=== PATIENT | male | born 1945 | race Caucasian/White ===

== ENCOUNTER 2019-04-22 09:16 | Observation (INO) | payer OTHER ==
[2019-04-22] MEDS ORDERED: Sodium Chloride 0.9% 10 ML Syringe FLUSH PRN (09:18)
[2019-04-22] MEDS ORDERED: Sodium Chloride 0.9% 2.5 ML Syringe FLUSH PRN (09:18)
[2019-04-22] MEDS ORDERED: Albuterol/Ipratropium 3.0-0.5 MG/3 ML Neb Soln NEB ONE (09:29)
[2019-04-22] MEDS ORDERED: methylPREDNISolone Sodium Succinate 125 MG/2 ML SDV IVPUSH ONE (09:29)
--- NOTE | 2019-04-22 09:30 | EDM.PDOC ---
ED HPI GENERAL MEDICAL PROBLEM - General Chief Complaint: Respiratory Problem Stated Complaint: SHORTNESS OF BREATH Time Seen by Provider: 04/22/19 09:29 Source of Information: Reports: Patient, Family History Limitations: Reports: No Limitations - History of Present Illness INITIAL COMMENTS - FREE TEXT/NARRATIVE: HISTORY AND PHYSICAL: History of present illness: Patient is a 73-year-old male presents to the ED with complaint of fever and SOB. He states he had shaking chills this morning and a fever of 101F. He has history of COPD on 2L of O2 with activity. Reports having increased shortness of breath yesterday and worse this morning. Denies chest pain, worsening cough, abdominal pain, nausea, vomiting. He states he takes diltiazem for tachycardia but otherwise denies atrial fibrillation or other cardiac history. He states he has a history of a "spot" in his right upper lobe that comes and goes that he has monitored in [place]. Review of systems: As per history of present illness and below otherwise all systems reviewed and negative. Past medical history: As per history of present illness and as reviewed below otherwise noncontributory. Surgical history: As per history of present illness and as reviewed below otherwise noncontributory. Social history: No reported history of drug or alcohol abuse. Family history: As per history of present illness and as reviewed below otherwise noncontributory. Physical exam: General: Patient sitting comfortably in no acute distress and nontoxic appearing HEENT: Atraumatic, normocephalic, pupils reactive, negative for conjunctival pallor or scleral icterus, mucous membranes moist, throat clear, neck supple, nontender, trachea midline. No meningeal signs. Lungs: Breath sounds diminished throughout all lung mercedes, chest nontender. Heart: S1S2, regular, negative for clicks, rubs, or overt murmur. Abdomen: Soft, nondistended, nontender. Negative for masses or hepatosplenomegaly. Negative for costovertebral tenderness. No rigidity, rebound , guarding. Pelvis: Stable nontender. Genitourinary: Deferred. Rectal: Deferred. Extremities: Atraumatic, negative for cords or calf pain. Neurovascular unremarkable. Neuro: Awake, alert, oriented. Cranial nerves II through XII unremarkable. Cerebellum unremarkable. Motor and sensory unremarkable throughout. Exam nonfocal. Notes: Diagnostics: CBC, CMP, troponin, PT/INR, blood culture x 2, lactate, CXR, EKG Therapeutics: DuoNeb Solumedrol 125mg IM Levaquin 750mg IV Prescriptions: Impression: Dyspnea, fever, COPD exacerbation, pneumonia Plan: Discussed with Dr. Roach, patient admitted to observation. Definitive disposition and diagnosis as appropriate pending reevaluation and review of above. - Related Data Allergies Allergy/AdvReac Type Severity Reaction Status Date / Time No Known Allergies Allergy Verified 04/22/19 09:19 Home Meds: Home Meds Aspirin 81 mg PO DAILY 04/22/19 [History] Bisacodyl [Laxative] 7 tab PO DAILY 04/22/19 [History] Budesonide/Formoterol [Symbicort 160-4.5 MCG] 1 puff INH BID 04/22/19 [History] Diltiazem HCl [Cardizem] 60 mg PO DAILY 04/22/19 [History] Fish Oil/[place]-3 Fatty Acids [Fish Oil] 1 tab PO DAILY 04/22/19 [History] Levalbuterol HCl [Levalbuterol Concentrate] 1 dose INH Q8HR 04/22/19 [History] Magnesium 30 mg PO DAILY 04/22/19 [History] Magnesium Citrate [Citrate of Magnesia] 1 dose PO ASDIRECTED PRN 04/22/19 [ History] Multivitamin [Multivitamins] 1 tab PO DAILY 04/22/19 [History] Potassium Chloride 40 meq PO DAILY 04/22/19 [History] Pravastatin [Pravachol] 40 mg PO BEDTIME 04/22/19 [History] Tiotropium [Spiriva HandiHaler] 2 puff INH DAILY 04/22/19 [History] buPROPion [Wellbutrin SR] 150 mg PO DAILY 04/22/19 [History] busPIRone [Buspar] 10 mg PO TID 04/22/19 [History] lamoTRIgine [Lamictal (Green)] 1 tab PO DAILY 04/22/19 [History] Past Medical History HEENT History: Reports: Cataract Cardiovascular History: Reports: None Respiratory History: Reports: Intubation, Previous, Other (See Below) Other Respiratory History: emphysema. "spot on Right upper lobe" Gastrointestinal History: Reports: None Genitourinary History: Reports: None Musculoskeletal History: Reports: Other (See Below) Neurological History: Reports: None Psychiatric History: Reports: None Endocrine/Metabolic History: Reports: Obesity/BMI 30+ Hematologic History: Reports: None Immunologic History: Reports: None Oncologic (Cancer) History: Reports: Colon Dermatologic History: Reports: None - Past Surgical History Head Surgeries/Procedures: Reports: None HEENT Surgical History: Reports: Cataract Surgery, Tonsillectomy, Other (See Below) Other HEENT Surgeries/Procedures: Procedure on throat Cardiovascular Surgical History: Reports: None Respiratory Surgical History: Reports: None GI Surgical History: Reports: Colon, Colonoscopy, Hernia, Inguinal Male Surgical History: Reports: None Endocrine Surgical History: Reports: Thyroid Biopsy Neurological Surgical History: Reports: None Musculoskeletal Surgical History: Reports: None Oncologic Surgical History: Reports: None Dermatological Surgical History: Reports: None Social & Family History - Family History Family Medical History: Noncontributory ED ROS GENERAL - Review of Systems Review Of Systems: ROS reveals no pertinent complaints other than HPI. ED EXAM, GENERAL - Physical Exam Exam: See Below (see dictation) Course - Vital Signs Last Recorded V/S: Last Vital Signs Temp 100.8 F H 04/22/19 09:19 Pulse 108 H 04/22/19 12:00 Resp 18 04/22/19 12:00 BP 130/77 04/22/19 12:00 Pulse Ox 95 04/22/19 12:00 - Orders/Labs/Meds Orders: Active Orders 24 hr Category Date Time Status Cardiac Monitoring [RC] . DIRECTED Care 04/22/19 09:18 Active EKG Documentation Completion [RC] STAT Care 04/22/19 09:18 Active RT Aerosol Therapy [RC] ASDIRECTED Care 04/22/19 09:29 Active CULTURE BLOOD [BC] Stat Lab 04/22/19 09:22 Received CULTURE BLOOD [BC] Stat Lab 04/22/19 09:40 Received Levofloxacin/Dextrose 5%-Water [Levaquin in D5W 750 MG/ Med 04/22/19 12:35 Ordered 150 ML] 750 mg Premix Bag 1 bag IV ONETIME Sodium Chloride 0.9% [Saline Flush] Med 04/22/19 09:18 Active 10 ml FLUSH ASDIRECTED PRN Sodium Chloride 0.9% [Saline Flush] Med 04/22/19 09:18 Active 2.5 ml FLUSH ASDIRECTED PRN Blood Culture x2 Reflex Set [OM.PC] Stat Oth 04/22/19 09:19 Ordered Saline Lock Insert [OM.PC] Stat Oth 04/22/19 09:18 Ordered Medication Orders Levofloxacin/Dextrose 750 mg/ (Premix) 150 mls @ 100 mls/hr IV ONETIME ONE Stop: 04/22/19 14:04 Sodium Chloride (Saline Flush) 10 ml FLUSH ASDIRECTED PRN PRN Reason: Keep Vein Open Last Admin: 04/22/19 09:29 Dose: 10 ml Sodium Chloride (Saline Flush) 2.5 ml FLUSH ASDIRECTED PRN PRN Reason: Keep Vein Open Last Admin: 04/22/19 09:29 Dose: 2.5 ml Labs: Laboratory Tests 04/22/19 04/22/19 04/22/19 Range/Units 09:22 09:22 09:22 WBC 12.08 H (4.0-11.0) K/uL RBC 4.32 L (4.50-5.90) M/uL Hgb 13.4 (13.0-17.0) g/dL Hct 41.2 (38.0-50.0) % MCV 95.4 (80.0-98.0) fL MCH 31.0 (27.0-32.0) pg MCHC 32.5 (31.0-37.0) g/dL RDW Std Deviation 46.4 (28.0-62.0) fl RDW Coeff of [place] 13 (11.0-15.0) % Plt Count 284 (150-400) K/uL MPV 9.40 (7.40-12.00) fL Neut % (Auto) 75.0 (48.0-80.0) % Lymph % (Auto) 13.2 L (16.0-40.0) % [place] % (Auto) 10.2 (0.0-15.0) % Eos % (Auto) 1.5 (0.0-7.0) % Baso % (Auto) 0.1 (0.0-1.5) % Neut # (Auto) 9.1 H (1.4-5.7) K/uL Lymph # (Auto) 1.6 (0.6-2.4) K/uL [place] # (Auto) 1.2 H (0.0-0.8) K/uL Eos # (Auto) 0.2 (0.0-0.7) K/uL Baso # (Auto) 0.0 (0.0-0.1) K/uL Nucleated RBC % 0.0 /100WBC Nucleated RBCs # 0 K/uL INR 1.02 D-Dimer, Quantitative (0.0-0.50) mg/L FEU Lactate (0.20-2.00) mmol/L Sodium 138 (136-148) mmol/L Potassium 4.2 (3.5-5.1) mmol/L Chloride 103 (98-107) mmol/L Carbon Dioxide 27.4 (21.0-32.0) mmol/L BUN 19 H (7.0-18.0) mg/dL Creatinine 1.1 (0.8-1.3) mg/dL Est Cr Clr Drug Dosing 62.68 mL/min Estimated GFR (MDRD) > 60.0 ml/min Glucose 102 (74-106) mg/dL Calcium 10.0 (8.5-10.1) mg/dL Total Bilirubin 0.6 (0.2-1.0) mg/dL AST 10 L (15-37) IU/L ALT 18 (14-63) IU/L Alkaline Phosphatase 56 (46-116) U/L Troponin I < 0.050 (0.000-0.056) ng/mL Total Protein 7.6 (6.4-8.2) g/dL Albumin 3.3 L (3.4-5.0) g/dL Globulin 4.3 H (2.6-4.0) g/dL Albumin/Globulin Ratio 0.8 L (0.9-1.6) Urine Color Urine Appearance Urine pH (5.0-8.0) Ur Specific Josephine (1.001-1.035) Urine Protein (NEGATIVE) mg/dL Urine Glucose (UA) (NEGATIVE) mg/dL Urine Ketones (NEGATIVE) mg/dL Urine Occult Blood (NEGATIVE) Urine Nitrite (NEGATIVE) Urine Bilirubin (NEGATIVE) Urine Urobilinogen (<2.0) EU/dL Ur Leukocyte Esterase (NEGATIVE) Urine RBC (0-2/HPF) Urine WBC (0-5/HPF) Ur Epithelial Cells (NONE-FEW) Urine Bacteria (NEGATIVE) 04/22/19 04/22/19 04/22/19 Range/Units 09:22 09:22 10:50 WBC (4.0-11.0) K/uL RBC (4.50-5.90) M/uL Hgb (13.0-17.0) g/dL Hct (38.0-50.0) % MCV (80.0-98.0) fL MCH (27.0-32.0) pg MCHC (31.0-37.0) g/dL RDW Std Deviation (28.0-62.0) fl RDW Coeff of [place] (11.0-15.0) % Plt Count (150-400) K/uL MPV (7.40-12.00) fL Neut % (Auto) (48.0-80.0) % Lymph % (Auto) (16.0-40.0) % [place] % (Auto) (0.0-15.0) % Eos % (Auto) (0.0-7.0) % Baso % (Auto) (0.0-1.5) % Neut # (Auto) (1.4-5.7) K/uL Lymph # (Auto) (0.6-2.4) K/uL [place] # (Auto) (0.0-0.8) K/uL Eos # (Auto) (0.0-0.7) K/uL Baso # (Auto) (0.0-0.1) K/uL Nucleated RBC % /100WBC Nucleated RBCs # K/uL INR D-Dimer, Quantitative 0.59 H (0.0-0.50) mg/L FEU Lactate 1.2 (0.20-2.00) mmol/L Sodium (136-148) mmol/L Potassium (3.5-5.1) mmol/L Chloride (98-107) mmol/L Carbon Dioxide (21.0-32.0) mmol/L BUN (7.0-18.0) mg/dL Creatinine (0.8-1.3) mg/dL Est Cr Clr Drug Dosing mL/min Estimated GFR (MDRD) ml/min Glucose (74-106) mg/dL Calcium (8.5-10.1) mg/dL Total Bilirubin (0.2-1.0) mg/dL AST (15-37) IU/L ALT (14-63) IU/L Alkaline Phosphatase (46-116) U/L Troponin I (0.000-0.056) ng/mL Total Protein (6.4-8.2) g/dL Albumin (3.4-5.0) g/dL Globulin (2.6-4.0) g/dL Albumin/Globulin Ratio (0.9-1.6) Urine Color YELLOW Urine Appearance CLEAR Urine pH 6.5 (5.0-8.0) Ur Specific Josephine 1.020 (1.001-1.035) Urine Protein 30 H (NEGATIVE) mg/dL Urine Glucose (UA) NEGATIVE (NEGATIVE) mg/dL Urine Ketones 15 H (NEGATIVE) mg/dL Urine Occult Blood NEGATIVE (NEGATIVE) Urine Nitrite NEGATIVE (NEGATIVE) Urine Bilirubin NEGATIVE (NEGATIVE) Urine Urobilinogen 0.2 (<2.0) EU/dL Ur Leukocyte Esterase NEGATIVE (NEGATIVE) Urine RBC 0-3 (0-2/HPF) Urine WBC 0-1 (0-5/HPF) Ur Epithelial Cells RARE (NONE-FEW) Urine Bacteria RARE (NEGATIVE) Meds: Medications Generic Name Dose Route Start Last Admin Trade Name Freq PRN Reason Stop Dose Admin Levofloxacin/Dextrose 750 mg/ 150 mls @ 100 mls/hr 04/22/19 12:35 Premix IV 04/22/19 14:04 ONETIME ONE Sodium Chloride 10 ml 04/22/19 09:18 04/22/19 09:29 Saline Flush FLUSH 10 ml ASDIRECTED PRN Administration Keep Vein Open Sodium Chloride 2.5 ml 04/22/19 09:18 04/22/19 09:29 Saline Flush FLUSH 2.5 ml ASDIRECTED PRN Administration Keep Vein Open Discontinued Medications Generic Name Dose Route Start Last Admin Trade Name Freq PRN Reason Stop Dose Admin Albuterol/Ipratropium 3 ml 04/22/19 09:29 04/22/19 09:34 Duoneb 3.0-0.5 Mg/3 Ml NEB 04/22/19 09:30 3 ml ONETIME ONE Administration Iopamidol 80 ml 04/22/19 11:26 04/22/19 11:26 Isovue Multipack-370 (76%) IVPUSH 04/22/19 11:27 80 ml ONETIME ONE Administration Methylprednisolone Sodium Succinate 125 mg 04/22/19 09:29 04/22/19 09:33 Solu-Medrol IVPUSH 04/22/19 09:30 125 mg ONETIME ONE Administration Departure - Departure Time of Disposition: 12:39 Disposition: Refer to Observation Condition: Good Clinical Impression: Dyspnea, Fever, COPD exacerbation - Discharge Information Referrals: PCP,None [Primary Care Provider] - Forms: ED Department Discharge - My Orders Last 24 Hours: My Active Orders 04/22/19 09:18 Cardiac Monitoring [RC] . DIRECTED EKG Documentation Completion [RC] STAT Sodium Chloride 0.9% [Saline Flush] 10 ml FLUSH ASDIRECTED PRN Sodium Chloride 0.9% [Saline Flush] 2.5 ml FLUSH ASDIRECTED PRN Saline Lock Insert [OM.PC] Stat 04/22/19 09:19 Blood Culture x2 Reflex Set [OM.PC] Stat 04/22/19 09:22 CULTURE BLOOD [BC] Stat 04/22/19 09:29 RT Aerosol Therapy [RC] ASDIRECTED 04/22/19 09:40 CULTURE BLOOD [BC] Stat 04/22/19 12:35 Levofloxacin/Dextrose 5%-Water [Levaquin in D5W 750 MG/150 ML] 750 mg Premix Bag 1 bag IV ONETIME - Assessment/Plan Last 24 Hours: My Active Orders 04/22/19 09:18 Cardiac Monitoring [RC] . DIRECTED EKG Documentation Completion [RC] STAT Sodium Chloride 0.9% [Saline Flush] 10 ml FLUSH ASDIRECTED PRN Sodium Chloride 0.9% [Saline Flush] 2.5 ml FLUSH ASDIRECTED PRN Saline Lock Insert [OM.PC] Stat 04/22/19 09:19 Blood Culture x2 Reflex Set [OM.PC] Stat 04/22/19 09:22 CULTURE BLOOD [BC] Stat 04/22/19 09:29 RT Aerosol Therapy [RC] ASDIRECTED 04/22/19 09:40 CULTURE BLOOD [BC] Stat 04/22/19 12:35 Levofloxacin/Dextrose 5%-Water [Levaquin in D5W 750 MG/150 ML] 750 mg Premix Bag 1 bag IV ONETIME
[2019-04-22 10:05] LABS: BLOOD UREA NITROGEN,BUN 19 mg/dL (7.0-18.0); CARBON DIOXIDE,CO2 27.4 mmol/L (21.0-32.0); CHLORIDE,CL 103 mmol/L (98-107); GLUCOSE RANDOM 102 mg/dL (74-106); POTASSIUM,K 4.2 mmol/L (3.5-5.1); SODIUM,NA 138 mmol/L (136-148)
--- NOTE | 2019-04-22 10:29 | CR ---
INDICATION: Shortness of breath COMPARISON: none TECHNIQUE: Portable AP erect chest performed at 9:33 a.m. FINDINGS: There are no suspicious infiltrates or masses. There is no evidence pneumothorax. The heart, mediastinum and pulmonary vessels are of normal size. There is no evidence of pleural fluid. IMPRESSION: No acute cardiopulmonary disease process identified. Dictated by Nathan Pitt MD @ Apr 22 2019 10:26AM Signed by Dr. Nathan Pitt @ Apr 22 2019 10:27AM
[2019-04-22] MEDS ORDERED: Iopamidol 755 MG/ML 500 ML Multipack Bottle IVPUSH ONE (11:26)
--- NOTE | 2019-04-22 12:19 | CT ---
INDICATION: Dyspnea, elevated D-dimer. COMPARISON: Chest radiograph 04/22/2019. TECHNIQUE: CT volumetric acquisition was performed of the thorax during intravenous infusion of 80 cc of Isovue-370 nonionic intravenous contrast. Please note that all CT scans at this facility use dose modulation, iterative reconstruction, and/or weight-based dosing when appropriate to reduce radiation dose to as low as reasonably achievable. FINDINGS: Conventional 3 vessel aortic arch. Normal caliber thoracic aorta and central pulmonary arteries. No acute pulmonary embolism. Coronary artery and aortic calcifications. No pericardial effusion. Small low-attenuation nodule in a left thyroid lobe. Upper lung predominant emphysema. There are multifocal areas of scarring in the right upper lobe. Two of these areas have a somewhat spiculated nodular appearance. For example, there is a 1.9 x 1.2 cm spiculated nodular density in on series 502, image 41, and more superior to this a 2.3 x 1.6 cm spiculated nodular density on image 33. These are indeterminate for pulmonary nodules versus confluent areas of scarring. No pleural effusion or pneumothorax. No thoracic lymphadenopathy. Small esophageal hiatal hernia. Multiple low-attenuation lesions in the liver most likely represent benign cysts or hemangiomas. Splenule. Bilateral renal cysts. Mild degenerative changes of the spine. IMPRESSION: 1. No evidence of pulmonary thromboembolism. 2. Advanced emphysema. 3. Two spiculated nodular densities in the right upper lobe measuring up to 2.3 cm may represent pulmonary nodules versus confluent scarring. Recommend follow-up CT in 3 months or alternatively PET-CT. 4. Multiple low-attenuation lesions in the liver most likely represent benign cysts or hemangiomas. Please note that all CT scans at this facility use dose modulation, iterative reconstruction, and/or weight-based dosing when appropriate to reduce radiation dose to as low as reasonably achievable. Dictated by Yaquelin Galvez MD @ Apr 22 2019 12:00PM Signed by Dr. Yaquelin Galvez @ Apr 22 2019 12:18PM
[2019-04-22] MEDS ORDERED: Levofloxacin/Dextrose 5%-Water 750 MG in Premix Bag 1 BAG IV ONE (12:35)
[2019-04-22] MEDS ORDERED: Sodium Chloride 0.9% 1,000 ML IV ONE (12:37)
[2019-04-22] MEDS ORDERED: Ondansetron 4 MG Tab.DIS PO PRN (13:12)
[2019-04-22] MEDS ORDERED: Ondansetron 4 MG/2 ML SDV IVPUSH PRN (13:12)
[2019-04-22] MEDS ORDERED: Acetaminophen 325 MG Tab PO PRN (13:12)
[2019-04-22] MEDS ORDERED: Enoxaparin 40 MG/0.4 ML Syringe SUBCUT SCH (13:15)
--- NOTE | 2019-04-22 13:58 | PCM.HP ---
H&P History of Present Illness - General Date of Service: 04/22/19 Admit Problem/Dx: Admission Diagnosis/Problem Admission Diagnosis/Problem Dyspnea - History of Present Illness Initial Comments - Free Text/Narative: 73 y/o male with history of COPD who presented to the ER with 2-3 day history of worsening shortness of breath. Has been having productive, yellow, green cough. In addition, has been having fevers. No recent sick contacts. No smoking or alcohol. States he just got here over the weekend from [place], [place]. Here visiting family. States he has been using his inhalers as indicated. Denies chest pain, radiation to neck or arms. No abdominal pain, dysuria, diarrhea, constipation. No blood in stool. Able to ambulate short distances without walker. He uses supplemental O2 at home. Baseline of 2 L /min with activity. In the ER, he was found to have a fever, tachycardic. Chest xray was negative for any consolidations, infiltrates. CT chest was negative for PE. - Related Data Allergies/Adverse Reactions: Allergies Allergy/AdvReac Type Severity Reaction Status Date / Time No Known Allergies Allergy Verified 04/22/19 13:51 Home Medications: Home Meds Aspirin 81 mg PO DAILY 04/22/19 [History] Bisacodyl [Laxative] 7 tab PO DAILY 04/22/19 [History] Budesonide/Formoterol [Symbicort 160-4.5 MCG] 1 puff INH BID 04/22/19 [History] Diltiazem HCl [Cardizem] 60 mg PO DAILY 04/22/19 [History] Fish Oil/[place]-3 Fatty Acids [Fish Oil] 1 tab PO DAILY 04/22/19 [History] Levalbuterol HCl [Levalbuterol Concentrate] 1 dose INH Q8HR 04/22/19 [History] Magnesium 30 mg PO DAILY 04/22/19 [History] Magnesium Citrate [Citrate of Magnesia] 1 dose PO ASDIRECTED PRN 04/22/19 [ History] Multivitamin [Multivitamins] 1 tab PO DAILY 04/22/19 [History] Potassium Chloride 40 meq PO DAILY 04/22/19 [History] Pravastatin [Pravachol] 40 mg PO BEDTIME 04/22/19 [History] Tiotropium [Spiriva HandiHaler] 2 puff INH DAILY 04/22/19 [History] buPROPion [Wellbutrin SR] 150 mg PO DAILY 04/22/19 [History] busPIRone [Buspar] 10 mg PO TID 04/22/19 [History] lamoTRIgine [Lamictal (Green)] 1 tab PO DAILY 04/22/19 [History] Past Medical History HEENT History: Reports: Cataract Cardiovascular History: Reports: None Respiratory History: Reports: Intubation, Previous, Other (See Below) Other Respiratory History: emphysema. "spot on Right upper lobe" Gastrointestinal History: Reports: None Genitourinary History: Reports: None Musculoskeletal History: Reports: Other (See Below) Neurological History: Reports: None Psychiatric History: Reports: None Endocrine/Metabolic History: Reports: Obesity/BMI 30+ Hematologic History: Reports: None Immunologic History: Reports: None Oncologic (Cancer) History: Reports: Colon Dermatologic History: Reports: None - Past Surgical History Head Surgeries/Procedures: Reports: None HEENT Surgical History: Reports: Cataract Surgery, Tonsillectomy, Other (See Below) Other HEENT Surgeries/Procedures: Procedure on throat Cardiovascular Surgical History: Reports: None Respiratory Surgical History: Reports: None GI Surgical History: Reports: Colon, Colonoscopy, Hernia, Inguinal Male Surgical History: Reports: None Endocrine Surgical History: Reports: Thyroid Biopsy Neurological Surgical History: Reports: None Musculoskeletal Surgical History: Reports: None Oncologic Surgical History: Reports: None Dermatological Surgical History: Reports: None Social & Family History - Family History Family Medical History: Noncontributory - Tobacco Use Smoking Status *Q: Former Smoker Used Tobacco, but Quit: Yes Month/Year Tobacco Last Used: 2008 - Caffeine Use Caffeine Use: Reports: None - Recreational Drug Use Recreational Drug Use: No H&P Review of Systems - Review of Systems: Review Of Systems: ROS reveals no pertinent complaints other than HPI. Exam - Exam Exam: See Below - Vital Signs Vital Signs: Last Vital Signs Temp 37.3 C 04/22/19 12:47 Pulse 99 04/22/19 12:47 Resp 17 04/22/19 12:47 BP 127/82 04/22/19 12:47 Pulse Ox 98 04/22/19 12:47 Weight: 107 kg - Exam Quality Assessment: Supplemental Oxygen General: Alert, Oriented, Cooperative HEENT: Conjunctiva Clear, Mucosa Moist & Oak Lungs: Clear to Auscultation, Normal Respiratory Effort. No: Crackles, Wheezing Cardiovascular: Regular Rate, Regular Rhythm GI/Abdominal Exam: Normal Bowel Sounds, Soft, Non-Tender, No Distention Extremities: Normal Inspection, Non-Tender, No Pedal Edema Skin: Warm, Dry - Patient Data Lab Results Last 24 hrs: Laboratory Results - last 24 hr 04/22/19 04/22/19 04/22/19 Range/Units 09:22 09:22 09:22 WBC 12.08 H (4.0-11.0) K/uL RBC 4.32 L (4.50-5.90) M/uL Hgb 13.4 (13.0-17.0) g/dL Hct 41.2 (38.0-50.0) % MCV 95.4 (80.0-98.0) fL MCH 31.0 (27.0-32.0) pg MCHC 32.5 (31.0-37.0) g/dL RDW Std Deviation 46.4 (28.0-62.0) fl RDW Coeff of [place] 13 (11.0-15.0) % Plt Count 284 (150-400) K/uL MPV 9.40 (7.40-12.00) fL Neut % (Auto) 75.0 (48.0-80.0) % Lymph % (Auto) 13.2 L (16.0-40.0) % Taylor % (Auto) 10.2 (0.0-15.0) % Eos % (Auto) 1.5 (0.0-7.0) % Baso % (Auto) 0.1 (0.0-1.5) % Neut # (Auto) 9.1 H (1.4-5.7) K/uL Lymph # (Auto) 1.6 (0.6-2.4) K/uL Taylor # (Auto) 1.2 H (0.0-0.8) K/uL Eos # (Auto) 0.2 (0.0-0.7) K/uL Baso # (Auto) 0.0 (0.0-0.1) K/uL Nucleated RBC % 0.0 /100WBC Nucleated RBCs # 0 K/uL INR 1.02 D-Dimer, Quantitative (0.0-0.50) mg/L FEU Lactate (0.20-2.00) mmol/L Sodium 138 (136-148) mmol/L Potassium 4.2 (3.5-5.1) mmol/L Chloride 103 (98-107) mmol/L Carbon Dioxide 27.4 (21.0-32.0) mmol/L BUN 19 H (7.0-18.0) mg/dL Creatinine 1.1 (0.8-1.3) mg/dL Est Cr Clr Drug Dosing 62.68 mL/min Estimated GFR (MDRD) > 60.0 ml/min Glucose 102 (74-106) mg/dL Calcium 10.0 (8.5-10.1) mg/dL Total Bilirubin 0.6 (0.2-1.0) mg/dL AST 10 L (15-37) IU/L ALT 18 (14-63) IU/L Alkaline Phosphatase 56 (46-116) U/L Troponin I < 0.050 (0.000-0.056) ng/mL Total Protein 7.6 (6.4-8.2) g/dL Albumin 3.3 L (3.4-5.0) g/dL Globulin 4.3 H (2.6-4.0) g/dL Albumin/Globulin Ratio 0.8 L (0.9-1.6) Urine Color Urine Appearance Urine pH (5.0-8.0) Ur Specific [place] (1.001-1.035) Urine Protein (NEGATIVE) mg/dL Urine Glucose (UA) (NEGATIVE) mg/dL Urine Ketones (NEGATIVE) mg/dL Urine Occult Blood (NEGATIVE) Urine Nitrite (NEGATIVE) Urine Bilirubin (NEGATIVE) Urine Urobilinogen (<2.0) EU/dL Ur Leukocyte Esterase (NEGATIVE) Urine RBC (0-2/HPF) Urine WBC (0-5/HPF) Ur Epithelial Cells (NONE-FEW) Urine Bacteria (NEGATIVE) 04/22/19 04/22/19 04/22/19 Range/Units 09:22 09:22 10:50 WBC (4.0-11.0) K/uL RBC (4.50-5.90) M/uL Hgb (13.0-17.0) g/dL Hct (38.0-50.0) % MCV (80.0-98.0) fL MCH (27.0-32.0) pg MCHC (31.0-37.0) g/dL RDW Std Deviation (28.0-62.0) fl RDW Coeff of Saitnder (11.0-15.0) % Plt Count (150-400) K/uL MPV (7.40-12.00) fL Neut % (Auto) (48.0-80.0) % Lymph % (Auto) (16.0-40.0) % Taylor % (Auto) (0.0-15.0) % Eos % (Auto) (0.0-7.0) % Baso % (Auto) (0.0-1.5) % Neut # (Auto) (1.4-5.7) K/uL Lymph # (Auto) (0.6-2.4) K/uL Taylor # (Auto) (0.0-0.8) K/uL Eos # (Auto) (0.0-0.7) K/uL Baso # (Auto) (0.0-0.1) K/uL Nucleated RBC % /100WBC Nucleated RBCs # K/uL INR D-Dimer, Quantitative 0.59 H (0.0-0.50) mg/L FEU Lactate 1.2 (0.20-2.00) mmol/L Sodium (136-148) mmol/L Potassium (3.5-5.1) mmol/L Chloride (98-107) mmol/L Carbon Dioxide (21.0-32.0) mmol/L BUN (7.0-18.0) mg/dL Creatinine (0.8-1.3) mg/dL Est Cr Clr Drug Dosing mL/min Estimated GFR (MDRD) ml/min Glucose (74-106) mg/dL Calcium (8.5-10.1) mg/dL Total Bilirubin (0.2-1.0) mg/dL AST (15-37) IU/L ALT (14-63) IU/L Alkaline Phosphatase (46-116) U/L Troponin I (0.000-0.056) ng/mL Total Protein (6.4-8.2) g/dL Albumin (3.4-5.0) g/dL Globulin (2.6-4.0) g/dL Albumin/Globulin Ratio (0.9-1.6) Urine Color YELLOW Urine Appearance CLEAR Urine pH 6.5 (5.0-8.0) Ur Specific [place] 1.020 (1.001-1.035) Urine Protein 30 H (NEGATIVE) mg/dL Urine Glucose (UA) NEGATIVE (NEGATIVE) mg/dL Urine Ketones 15 H (NEGATIVE) mg/dL Urine Occult Blood NEGATIVE (NEGATIVE) Urine Nitrite NEGATIVE (NEGATIVE) Urine Bilirubin NEGATIVE (NEGATIVE) Urine Urobilinogen 0.2 (<2.0) EU/dL Ur Leukocyte Esterase NEGATIVE (NEGATIVE) Urine RBC 0-3 (0-2/HPF) Urine WBC 0-1 (0-5/HPF) Ur Epithelial Cells RARE (NONE-FEW) Urine Bacteria RARE (NEGATIVE) Result Diagrams: 04/22/19 09:22 04/22/19 09:22 Problem List Initiated/Reviewed/Updated: Yes Orders Last 24hrs: Active Orders 24 hr Category Date Time Status Admission Status [Patient Status] [ADT] Stat ADT 04/22/19 12:40 Active Cardiac Monitoring [RC] . DIRECTED Care 04/22/19 09:18 Active Intake and Output [RC] Q12H Care 04/22/19 13:12 Active Oxygen Therapy [RC] PRN Care 04/22/19 13:12 Active RT Aerosol Therapy [RC] ASDIRECTED Care 04/22/19 09:29 Active RT Aerosol Therapy [RC] ASDIRECTED Care 04/22/19 13:14 Active Up ad María [RC] ASDIRECTED Care 04/22/19 13:12 Active VTE/DVT Education [RC] PER UNIT ROUTINE Care 04/22/19 13:12 Active Vital Signs [RC] Q4H Care 04/22/19 13:12 Active Regular Diet [DIET] Diet 04/22/19 Breakfast Active CULTURE BLOOD [BC] Stat Lab 04/22/19 09:22 Received CULTURE BLOOD [BC] Stat Lab 04/22/19 09:40 Received MAGNESIUM [CHEM] Routine Lab 04/22/19 09:22 Received TSH [CHEM] Routine Lab 04/22/19 09:22 Received Acetaminophen [Tylenol] Med 04/22/19 13:12 Active 650 mg PO Q4H PRN Albuterol/Ipratropium [DuoNeb 3.0-0.5 MG/3 ML] Med 04/22/19 13:12 Active 3 ml NEB Q4HRRT PRN Aspirin Med 04/23/19 09:00 Ordered 81 mg PO DAILY Diltiazem IR [Cardizem] Med 04/23/19 09:00 Ordered 60 mg PO DAILY Enoxaparin [Lovenox] Med 04/22/19 13:15 Active 40 mg SUBCUT Q24H Levofloxacin/Dextrose 5%-Water [Levaquin in D5W 750 MG/ Med 04/22/19 12:35 Active 150 ML] 750 mg Premix Bag 1 bag IV ONETIME Levofloxacin/Dextrose 5%-Water [Levaquin in D5W 750 MG/ Med 04/23/19 09:00 Active 150 ML] 750 mg Premix Bag 1 bag IV Q24H Ondansetron [Zofran ODT] Med 04/22/19 13:12 Active 4 mg PO Q4H PRN Ondansetron [Zofran] Med 04/22/19 13:12 Active 4 mg IVPUSH Q4H PRN Sodium Chloride 0.9% [Normal Saline] 1,000 ml Med 04/22/19 12:37 Active IV STAT Sodium Chloride 0.9% [Saline Flush] Med 04/22/19 09:18 Active 10 ml FLUSH ASDIRECTED PRN Sodium Chloride 0.9% [Saline Flush] Med 04/22/19 09:18 Active 2.5 ml FLUSH ASDIRECTED PRN buPROPion Med 04/23/19 09:00 Ordered 150 mg PO DAILY busPIRone Med 04/22/19 14:00 Ordered 10 mg PO TID predniSONE Med 04/23/19 08:00 Active 40 mg PO WITHBREAKFAST Blood Culture x2 Reflex Set [OM.PC] Stat Oth 04/22/19 09:19 Ordered Saline Lock Insert [OM.PC] Stat Oth 04/22/19 09:18 Ordered Resuscitation Status Routine Resus Stat 04/22/19 13:12 Ordered Medication Orders Acetaminophen (Tylenol) 650 mg PO Q4H PRN PRN Reason: Pain (Mild 1-3)/fever Albuterol/Ipratropium (Duoneb 3.0-0.5 Mg/3 Ml) 3 ml NEB Q4HRRT PRN PRN Reason: Shortness Of Breath/wheezing Aspirin (Aspirin) 81 mg PO DAILY RICHARD Diltiazem HCl (Cardizem) 60 mg PO DAILY [facility] Enoxaparin Sodium (Lovenox) 40 mg SUBCUT Q24H RICHARD Levofloxacin/Dextrose 750 mg/ (Premix) 150 mls @ 100 mls/hr IV ONETIME ONE Stop: 04/22/19 14:04 Last Admin: 04/22/19 12:50 Dose: 100 mls/hr Sodium Chloride (Normal Saline) 1,000 mls @ 125 mls/hr IV STAT ONE Stop: 04/22/19 20:36 Last Admin: 04/22/19 12:50 Dose: 125 mls/hr Levofloxacin/Dextrose 750 mg/ (Premix) 150 mls @ 100 mls/hr IV Q24H RICHARD Non-Formulary Medication (Bupropion) 150 mg PO DAILY [facility] Non-Formulary Medication (Buspirone) 10 mg PO TID RICHARD Ondansetron HCl (Zofran Odt) 4 mg PO Q4H PRN PRN Reason: nausea, able to take PO Ondansetron HCl (Zofran) 4 mg IVPUSH Q4H PRN PRN Reason: Nausea Prednisone (Prednisone) 40 mg PO WITHBREAKFAST [facility] Stop: 04/28/19 08:01 Sodium Chloride (Saline Flush) 10 ml FLUSH ASDIRECTED PRN PRN Reason: Keep Vein Open Last Admin: 04/22/19 09:29 Dose: 10 ml Sodium Chloride (Saline Flush) 2.5 ml FLUSH ASDIRECTED PRN PRN Reason: Keep Vein Open Last Admin: 04/22/19 09:29 Dose: 2.5 ml Assessment/Plan Comment:: A: 1. Acute COPD exacerbation 2. Leukocytosis due to above 3. Fever 4. PMH Hypertension, dyslipidemia and colon cancer s/p colectomy. P: 1. Will treat for acute COPD exacerbation. Continue Levaquin 750 mg IV Q24H. Prednisone 40 mg PO daily. Duonebs PRN. Supplemental O2, titrate as needed. Will continue his home medications. Dispo: 1-2 days.
[2019-04-22] MEDS: busPIRone 5 MG Tab PO SCH ×2 (14:45→21:38)
[2019-04-22] MEDS ORDERED: Pravastatin 40 MG Tab PO SCH (21:00)
[2019-04-22] MEDS ORDERED: Terazosin 5 MG Cap PO SCH (21:00)
[2019-04-22] MEDS: Albuterol/Ipratropium 3.0-0.5 MG/3 ML Neb Soln NEB PRN (21:46)
[2019-04-23] MEDS: busPIRone 5 MG Tab PO SCH (05:35)
[2019-04-23 07:54] LABS: BLOOD UREA NITROGEN,BUN 21 mg/dL (7.0-18.0); CHLORIDE,CL 105 mmol/L (98-107); GLUCOSE RANDOM 120 mg/dL (74-106); SODIUM,NA 139 mmol/L (136-148)
[2019-04-23] MEDS ORDERED: predniSONE 20 MG Tab PO SCH (08:00)
[2019-04-23] MEDS ORDERED: Aspirin 81 MG Tab.Chew PO SCH (09:00)
[2019-04-23] MEDS ORDERED: Diltiazem IR 60 MG Tab PO SCH (09:00)
[2019-04-23] MEDS ORDERED: Levofloxacin/Dextrose 5%-Water 750 MG in Premix Bag 1 BAG IV SCH (09:00)
[2019-04-23] MEDS ORDERED: buPROPion 150 MG Tab.SR PO SCH (09:00)
--- NOTE | 2019-04-23 09:12 | PCM.DCSUM1 ---
<Noe Nicole - Last Filed: 04/23/19 09:13> Discharge Summary - Hospital Course Free Text/Narrative:: 73 y/o male with history of COPD presenting to the ER complaining of worsening shortness of breath. Admitted for acute COPD exacerbation. He did relatively well during the hospitalization. His dyspnea resolved with Duonebs. He was started on prednisone and Levaquin. In addition, CT chest was negative for pulmonary embolism, however, there were 2 spiculated nodules found in right upper lobe which needs follow-up with CT chest in 3 months. He was discharged home on levaquin 750 mg PO daily for 5 days and prednisone 40 mg PO daily for 5 days. Will need repeat CT chest in 3 months for suspected spiculated nodules on right lung. - Discharge Data Discharge Date: 04/23/19 Discharge Disposition: Home, Self-Care 01 Condition: Good - Patient Instructions Diet: Regular Diet as Tolerated Activity: As Tolerated Notify Provider of: Fever, Increased Pain, Swelling and Redness, Nausea and/or Vomiting - Discharge Plan *PRESCRIPTION DRUG MONITORING PROGRAM REVIEWED*: Not Applicable *COPY OF PRESCRIPTION DRUG MONITORING REPORT IN PATIENT FELECIA: Not Applicable Prescriptions/Med Rec: Levofloxacin [Levaquin] 750 mg PO DAILY #5 tablet predniSONE 40 mg PO WITHBREAKFAST 5 Days #10 tablet Home Medications: Home Meds Aspirin 81 mg PO DAILY 04/22/19 [History] Budesonide/Formoterol [Symbicort 160-4.5 MCG] 2 puff INH BID 04/22/19 [History] Diltiazem HCl [Cardizem] 360 mg PO DAILY 04/22/19 [History] Fish Oil/[place]-3 Fatty Acids [Fish Oil] 1 tab PO DAILY 04/22/19 [History] Furosemide [Lasix] 40 mg PO DAILY 04/22/19 [History] Levalbuterol HCl [Levalbuterol Concentrate] 1 dose NEB Q4HWA 04/22/19 [History] Loratadine [Allergy Relief] 10 mg PO DAILY 04/22/19 [History] Magnesium 420 mg PO DAILY 04/22/19 [History] Magnesium Citrate [Citrate of Magnesia] 1 dose PO ASDIRECTED PRN 04/22/19 [ History] Multivitamin [Multivitamins] 1 tab PO DAILY 04/22/19 [History] Potassium Chloride 20 meq PO DAILY 04/22/19 [History] Pravastatin [Pravachol] 40 mg PO BEDTIME 04/22/19 [History] Ranitidine [Zantac] 150 mg PO DAILY 04/22/19 [History] Sennosides [Senna] 8.6 mg PO DAILY 04/22/19 [History] Terazosin HCl [Terazosin] 5 mg PO BEDTIME 04/22/19 [History] Tiotropium [Spiriva HandiHaler] 2 puff INH DAILY 04/22/19 [History] buPROPion [Wellbutrin SR] 300 mg PO DAILY 04/22/19 [History] busPIRone [Buspar] 10 mg PO TID 04/22/19 [History] Levofloxacin [Levaquin] 750 mg PO DAILY #5 tablet 04/23/19 [Rx] predniSONE 40 mg PO WITHBREAKFAST 5 Days #10 tablet 04/23/19 [Rx] Patient Handouts: Chronic Obstructive Pulmonary Disease Exacerbation, Easy-to- Read, Shortness of Breath, Adult, [id number], Levofloxacin tablets, Prednisone tablets, Fever, Adult, [id number] - Discharge Summary/Plan Comment DC Time >30 min.: No - Patient Data Vitals - Most Recent: Last Vital Signs Temp 36.7 C 04/23/19 09:00 Pulse 96 04/23/19 09:00 Resp 15 04/23/19 09:00 BP 134/106 H 04/23/19 09:00 Pulse Ox 93 L 04/23/19 09:00 Weight - Most Recent: 107 kg I&O - Last 24 hours: Intake & Output 04/22/19 04/23/19 04/23/19 22:59 06:59 14:59 Intake Total 1633 450 Output Total 500 550 Balance 1133 -100 Lab Results - Last 24 hrs: Laboratory Results - last 24 hr 04/22/19 04/22/19 04/22/19 Range/Units 09:22 09:22 09:22 WBC 12.08 H (4.0-11.0) K/uL RBC 4.32 L (4.50-5.90) M/uL Hgb 13.4 (13.0-17.0) g/dL Hct 41.2 (38.0-50.0) % MCV 95.4 (80.0-98.0) fL MCH 31.0 (27.0-32.0) pg MCHC 32.5 (31.0-37.0) g/dL RDW Std Deviation 46.4 (28.0-62.0) fl RDW Coeff of [place] 13 (11.0-15.0) % Plt Count 284 (150-400) K/uL MPV 9.40 (7.40-12.00) fL Neut % (Auto) 75.0 (48.0-80.0) % Lymph % (Auto) 13.2 L (16.0-40.0) % [place] % (Auto) 10.2 (0.0-15.0) % Eos % (Auto) 1.5 (0.0-7.0) % Baso % (Auto) 0.1 (0.0-1.5) % Neut # (Auto) 9.1 H (1.4-5.7) K/uL Lymph # (Auto) 1.6 (0.6-2.4) K/uL [place] # (Auto) 1.2 H (0.0-0.8) K/uL Eos # (Auto) 0.2 (0.0-0.7) K/uL Baso # (Auto) 0.0 (0.0-0.1) K/uL Nucleated RBC % 0.0 /100WBC Nucleated RBCs # 0 K/uL INR 1.02 D-Dimer, Quantitative (0.0-0.50) mg/L FEU Lactate (0.20-2.00) mmol/L Sodium 138 (136-148) mmol/L Potassium 4.2 (3.5-5.1) mmol/L Chloride 103 (98-107) mmol/L Carbon Dioxide 27.4 (21.0-32.0) mmol/L BUN 19 H (7.0-18.0) mg/dL Creatinine 1.1 (0.8-1.3) mg/dL Est Cr Clr Drug Dosing 62.68 mL/min Estimated GFR (MDRD) > 60.0 ml/min Glucose 102 (74-106) mg/dL Calcium 10.0 (8.5-10.1) mg/dL Magnesium (1.8-2.4) mg/dL Total Bilirubin 0.6 (0.2-1.0) mg/dL AST 10 L (15-37) IU/L ALT 18 (14-63) IU/L Alkaline Phosphatase 56 (46-116) U/L Troponin I < 0.050 (0.000-0.056) ng/mL Total Protein 7.6 (6.4-8.2) g/dL Albumin 3.3 L (3.4-5.0) g/dL Globulin 4.3 H (2.6-4.0) g/dL Albumin/Globulin Ratio 0.8 L (0.9-1.6) Free T4 (0.76-1.46) ng/dL Free T3 (2.18-3.98) pg/mL TSH 3rd Generation (0.36-3.74) uIU/mL Urine Color Urine Appearance Urine pH (5.0-8.0) Ur Specific [place] (1.001-1.035) Urine Protein (NEGATIVE) mg/dL Urine Glucose (UA) (NEGATIVE) mg/dL Urine Ketones (NEGATIVE) mg/dL Urine Occult Blood (NEGATIVE) Urine Nitrite (NEGATIVE) Urine Bilirubin (NEGATIVE) Urine Urobilinogen (<2.0) EU/dL Ur Leukocyte Esterase (NEGATIVE) Urine RBC (0-2/HPF) Urine WBC (0-5/HPF) Ur Epithelial Cells (NONE-FEW) Urine Bacteria (NEGATIVE) 04/22/19 04/22/19 04/22/19 Range/Units 09:22 09:22 09:22 WBC (4.0-11.0) K/uL RBC (4.50-5.90) M/uL Hgb (13.0-17.0) g/dL Hct (38.0-50.0) % MCV (80.0-98.0) fL MCH (27.0-32.0) pg MCHC (31.0-37.0) g/dL RDW Std Deviation (28.0-62.0) fl RDW Coeff of [place] (11.0-15.0) % Plt Count (150-400) K/uL MPV (7.40-12.00) fL Neut % (Auto) (48.0-80.0) % Lymph % (Auto) (16.0-40.0) % [place] % (Auto) (0.0-15.0) % Eos % (Auto) (0.0-7.0) % Baso % (Auto) (0.0-1.5) % Neut # (Auto) (1.4-5.7) K/uL Lymph # (Auto) (0.6-2.4) K/uL [place] # (Auto) (0.0-0.8) K/uL Eos # (Auto) (0.0-0.7) K/uL Baso # (Auto) (0.0-0.1) K/uL Nucleated RBC % /100WBC Nucleated RBCs # K/uL INR D-Dimer, Quantitative 0.59 H (0.0-0.50) mg/L FEU Lactate 1.2 (0.20-2.00) mmol/L Sodium (136-148) mmol/L Potassium (3.5-5.1) mmol/L Chloride (98-107) mmol/L Carbon Dioxide (21.0-32.0) mmol/L BUN (7.0-18.0) mg/dL Creatinine (0.8-1.3) mg/dL Est Cr Clr Drug Dosing mL/min Estimated GFR (MDRD) ml/min Glucose (74-106) mg/dL Calcium (8.5-10.1) mg/dL Magnesium 2.0 (1.8-2.4) mg/dL Total Bilirubin (0.2-1.0) mg/dL AST (15-37) IU/L ALT (14-63) IU/L Alkaline Phosphatase (46-116) U/L Troponin I (0.000-0.056) ng/mL Total Protein (6.4-8.2) g/dL Albumin (3.4-5.0) g/dL Globulin (2.6-4.0) g/dL Albumin/Globulin Ratio (0.9-1.6) Free T4 (0.76-1.46) ng/dL Free T3 (2.18-3.98) pg/mL TSH 3rd Generation 0.20 L (0.36-3.74) uIU/mL Urine Color Urine Appearance Urine pH (5.0-8.0) Ur Specific [place] (1.001-1.035) Urine Protein (NEGATIVE) mg/dL Urine Glucose (UA) (NEGATIVE) mg/dL Urine Ketones (NEGATIVE) mg/dL Urine Occult Blood (NEGATIVE) Urine Nitrite (NEGATIVE) Urine Bilirubin (NEGATIVE) Urine Urobilinogen (<2.0) EU/dL Ur Leukocyte Esterase (NEGATIVE) Urine RBC (0-2/HPF) Urine WBC (0-5/HPF) Ur Epithelial Cells (NONE-FEW) Urine Bacteria (NEGATIVE) 04/22/19 04/22/19 04/23/19 Range/Units 10:50 17:30 07:25 WBC 11.22 H (4.0-11.0) K/uL RBC 4.09 L (4.50-5.90) M/uL Hgb 12.7 L (13.0-17.0) g/dL Hct 38.7 (38.0-50.0) % MCV 94.6 (80.0-98.0) fL MCH 31.1 (27.0-32.0) pg MCHC 32.8 (31.0-37.0) g/dL RDW Std Deviation 45.5 (28.0-62.0) fl RDW Coeff of [place] 13 (11.0-15.0) % Plt Count 277 (150-400) K/uL MPV 9.30 (7.40-12.00) fL Neut % (Auto) (48.0-80.0) % Lymph % (Auto) (16.0-40.0) % [place] % (Auto) (0.0-15.0) % Eos % (Auto) (0.0-7.0) % Baso % (Auto) (0.0-1.5) % Neut # (Auto) (1.4-5.7) K/uL Lymph # (Auto) (0.6-2.4) K/uL [place] # (Auto) (0.0-0.8) K/uL Eos # (Auto) (0.0-0.7) K/uL Baso # (Auto) (0.0-0.1) K/uL Nucleated RBC % 0.0 /100WBC Nucleated RBCs # 0 K/uL INR D-Dimer, Quantitative (0.0-0.50) mg/L FEU Lactate (0.20-2.00) mmol/L Sodium (136-148) mmol/L Potassium (3.5-5.1) mmol/L Chloride (98-107) mmol/L Carbon Dioxide (21.0-32.0) mmol/L BUN (7.0-18.0) mg/dL Creatinine (0.8-1.3) mg/dL Est Cr Clr Drug Dosing mL/min Estimated GFR (MDRD) ml/min Glucose (74-106) mg/dL Calcium (8.5-10.1) mg/dL Magnesium (1.8-2.4) mg/dL Total Bilirubin (0.2-1.0) mg/dL AST (15-37) IU/L ALT (14-63) IU/L Alkaline Phosphatase (46-116) U/L Troponin I (0.000-0.056) ng/mL Total Protein (6.4-8.2) g/dL Albumin (3.4-5.0) g/dL Globulin (2.6-4.0) g/dL Albumin/Globulin Ratio (0.9-1.6) Free T4 1.31 (0.76-1.46) ng/dL Free T3 2.37 (2.18-3.98) pg/mL TSH 3rd Generation (0.36-3.74) uIU/mL Urine Color YELLOW Urine Appearance CLEAR Urine pH 6.5 (5.0-8.0) Ur Specific [place] 1.020 (1.001-1.035) Urine Protein 30 H (NEGATIVE) mg/dL Urine Glucose (UA) NEGATIVE (NEGATIVE) mg/dL Urine Ketones 15 H (NEGATIVE) mg/dL Urine Occult Blood NEGATIVE (NEGATIVE) Urine Nitrite NEGATIVE (NEGATIVE) Urine Bilirubin NEGATIVE (NEGATIVE) Urine Urobilinogen 0.2 (<2.0) EU/dL Ur Leukocyte Esterase NEGATIVE (NEGATIVE) Urine RBC 0-3 (0-2/HPF) Urine WBC 0-1 (0-5/HPF) Ur Epithelial Cells RARE (NONE-FEW) Urine Bacteria RARE (NEGATIVE) 04/23/19 Range/Units 07:25 WBC (4.0-11.0) K/uL RBC (4.50-5.90) M/uL Hgb (13.0-17.0) g/dL Hct (38.0-50.0) % MCV (80.0-98.0) fL MCH (27.0-32.0) pg MCHC (31.0-37.0) g/dL RDW Std Deviation (28.0-62.0) fl RDW Coeff of [place] (11.0-15.0) % Plt Count (150-400) K/uL MPV (7.40-12.00) fL Neut % (Auto) (48.0-80.0) % Lymph % (Auto) (16.0-40.0) % [place] % (Auto) (0.0-15.0) % Eos % (Auto) (0.0-7.0) % Baso % (Auto) (0.0-1.5) % Neut # (Auto) (1.4-5.7) K/uL Lymph # (Auto) (0.6-2.4) K/uL [place] # (Auto) (0.0-0.8) K/uL Eos # (Auto) (0.0-0.7) K/uL Baso # (Auto) (0.0-0.1) K/uL Nucleated RBC % /100WBC Nucleated RBCs # K/uL INR D-Dimer, Quantitative (0.0-0.50) mg/L FEU Lactate (0.20-2.00) mmol/L Sodium 139 (136-148) mmol/L Potassium 5.0 (3.5-5.1) mmol/L Chloride 105 (98-107) mmol/L Carbon Dioxide 26.0 (21.0-32.0) mmol/L BUN 21 H (7.0-18.0) mg/dL Creatinine 1.1 (0.8-1.3) mg/dL Est Cr Clr Drug Dosing 62.68 mL/min Estimated GFR (MDRD) > 60.0 ml/min Glucose 120 H (74-106) mg/dL Calcium 10.0 (8.5-10.1) mg/dL Magnesium (1.8-2.4) mg/dL Total Bilirubin (0.2-1.0) mg/dL AST (15-37) IU/L ALT (14-63) IU/L Alkaline Phosphatase (46-116) U/L Troponin I (0.000-0.056) ng/mL Total Protein (6.4-8.2) g/dL Albumin (3.4-5.0) g/dL Globulin (2.6-4.0) g/dL Albumin/Globulin Ratio (0.9-1.6) Free T4 (0.76-1.46) ng/dL Free T3 (2.18-3.98) pg/mL TSH 3rd Generation (0.36-3.74) uIU/mL Urine Color Urine Appearance Urine pH (5.0-8.0) Ur Specific [place] (1.001-1.035) Urine Protein (NEGATIVE) mg/dL Urine Glucose (UA) (NEGATIVE) mg/dL Urine Ketones (NEGATIVE) mg/dL Urine Occult Blood (NEGATIVE) Urine Nitrite (NEGATIVE) Urine Bilirubin (NEGATIVE) Urine Urobilinogen (<2.0) EU/dL Ur Leukocyte Esterase (NEGATIVE) Urine RBC (0-2/HPF) Urine WBC (0-5/HPF) Ur Epithelial Cells (NONE-FEW) Urine Bacteria (NEGATIVE) Med Orders - Current: Current Medications Acetaminophen (Tylenol) 650 mg PO Q4H PRN PRN Reason: Pain (Mild 1-3)/fever Albuterol/Ipratropium (Duoneb 3.0-0.5 Mg/3 Ml) 3 ml NEB Q4HRRT PRN PRN Reason: Shortness Of Breath/wheezing Last Admin: 04/22/19 21:46 Dose: 3 ml Aspirin (Aspirin) 81 mg PO DAILY [facility] Last Admin: 04/23/19 09:06 Dose: 81 mg Bupropion HCl (Wellbutrin Sr) 150 mg PO DAILY [facility] Last Admin: 04/23/19 09:09 Dose: 150 mg Buspirone HCl (Buspar) 10 mg PO TID [facility] Last Admin: 04/23/19 05:35 Dose: 10 mg Diltiazem HCl (Cardizem) 60 mg PO DAILY [facility] Last Admin: 04/23/19 09:06 Dose: 60 mg Enoxaparin Sodium (Lovenox) 40 mg SUBCUT Q24H [facility] Last Admin: 04/22/19 14:44 Dose: 40 mg Levofloxacin/Dextrose 750 mg/ (Premix) 150 mls @ 100 mls/hr IV Q24H [facility] Last Admin: 04/23/19 09:06 Dose: 100 mls/hr Ondansetron HCl (Zofran Odt) 4 mg PO Q4H PRN PRN Reason: nausea, able to take PO Ondansetron HCl (Zofran) 4 mg IVPUSH Q4H PRN PRN Reason: Nausea Pravastatin Sodium (Pravachol) 40 mg PO BEDTIME [facility] Last Admin: 04/22/19 21:38 Dose: 40 mg Prednisone (Prednisone) 40 mg PO WITHBREAKFAST [facility] Stop: 04/28/19 08:01 Last Admin: 04/23/19 09:06 Dose: 40 mg Sodium Chloride (Saline Flush) 10 ml FLUSH ASDIRECTED PRN PRN Reason: Keep Vein Open Last Admin: 04/22/19 09:29 Dose: 10 ml Sodium Chloride (Saline Flush) 2.5 ml FLUSH ASDIRECTED PRN PRN Reason: Keep Vein Open Last Admin: 04/22/19 09:29 Dose: 2.5 ml Terazosin HCl (Hytrin) 5 mg PO BEDTIME [facility] Last Admin: 04/22/19 21:39 Dose: Not Given Discontinued Medications Albuterol/Ipratropium (Duoneb 3.0-0.5 Mg/3 Ml) 3 ml NEB ONETIME ONE Stop: 04/22/19 09:30 Last Admin: 04/22/19 09:34 Dose: 3 ml Levofloxacin/Dextrose 750 mg/ (Premix) 150 mls @ 100 mls/hr IV ONETIME ONE Stop: 04/22/19 14:04 Last Admin: 04/22/19 12:50 Dose: 100 mls/hr Sodium Chloride (Normal Saline) 1,000 mls @ 125 mls/hr IV STAT ONE Stop: 04/22/19 20:36 Last Admin: 04/22/19 12:50 Dose: 125 mls/hr Iopamidol (Isovue Multipack-370 (76%)) 80 ml IVPUSH ONETIME ONE Stop: 04/22/19 11:27 Last Admin: 04/22/19 11:26 Dose: 80 ml Methylprednisolone Sodium Succinate (Solu-Medrol) 125 mg IVPUSH ONETIME ONE Stop: 04/22/19 09:30 Last Admin: 04/22/19 09:33 Dose: 125 mg <Victoriano Roach - Last Filed: 04/29/19 19:31> - Patient Data Vitals - Most Recent: Last Vital Signs Temp 36.7 C 04/23/19 09:00 Pulse 96 04/23/19 09:00 Resp 15 04/23/19 09:00 BP 134/106 H 04/23/19 09:00 Pulse Ox 93 L 04/23/19 09:00 Med Orders - Current: Current Medications Discontinued Medications Acetaminophen (Tylenol) 650 mg PO Q4H PRN PRN Reason: Pain (Mild 1-3)/fever Albuterol/Ipratropium (Duoneb 3.0-0.5 Mg/3 Ml) 3 ml NEB ONETIME ONE Stop: 04/22/19 09:30 Last Admin: 04/22/19 09:34 Dose: 3 ml Albuterol/Ipratropium (Duoneb 3.0-0.5 Mg/3 Ml) 3 ml NEB Q4HRRT PRN PRN Reason: Shortness Of Breath/wheezing Last Admin: 04/23/19 09:44 Dose: 3 ml Aspirin (Aspirin) 81 mg PO DAILY [facility] Last Admin: 04/23/19 09:06 Dose: 81 mg Bupropion HCl (Wellbutrin Sr) 150 mg PO DAILY [facility] Last Admin: 04/23/19 09:09 Dose: 150 mg Buspirone HCl (Buspar) 10 mg PO TID [facility] Last Admin: 04/23/19 05:35 Dose: 10 mg Diltiazem HCl (Cardizem) 60 mg PO DAILY [facility] Last Admin: 04/23/19 09:06 Dose: 60 mg Diltiazem HCl (Cardizem Cd) 180 mg PO ONETIME ONE Stop: 04/23/19 09:53 Last Admin: 04/23/19 10:18 Dose: 180 mg Enoxaparin Sodium (Lovenox) 40 mg SUBCUT Q24H [facility] Last Admin: 04/22/19 14:44 Dose: 40 mg Levofloxacin/Dextrose 750 mg/ (Premix) 150 mls @ 100 mls/hr IV ONETIME ONE Stop: 04/22/19 14:04 Last Admin: 04/22/19 12:50 Dose: 100 mls/hr Sodium Chloride (Normal Saline) 1,000 mls @ 125 mls/hr IV STAT ONE Stop: 04/22/19 20:36 Last Admin: 04/22/19 12:50 Dose: 125 mls/hr Levofloxacin/Dextrose 750 mg/ (Premix) 150 mls @ 100 mls/hr IV Q24H [facility] Last Admin: 04/23/19 09:06 Dose: 100 mls/hr Iopamidol (Isovue Multipack-370 (76%)) 80 ml IVPUSH ONETIME ONE Stop: 04/22/19 11:27 Last Admin: 04/22/19 11:26 Dose: 80 ml Methylprednisolone Sodium Succinate (Solu-Medrol) 125 mg IVPUSH ONETIME ONE Stop: 04/22/19 09:30 Last Admin: 04/22/19 09:33 Dose: 125 mg Ondansetron HCl (Zofran Odt) 4 mg PO Q4H PRN PRN Reason: nausea, able to take PO Ondansetron HCl (Zofran) 4 mg IVPUSH Q4H PRN PRN Reason: Nausea Pravastatin Sodium (Pravachol) 40 mg PO BEDTIME [facility] Last Admin: 04/22/19 21:38 Dose: 40 mg Prednisone (Prednisone) 40 mg PO WITHBREAKFAST [facility] Stop: 04/28/19 08:01 Last Admin: 04/23/19 09:06 Dose: 40 mg Sodium Chloride (Saline Flush) 10 ml FLUSH ASDIRECTED PRN PRN Reason: Keep Vein Open Last Admin: 04/22/19 09:29 Dose: 10 ml Sodium Chloride (Saline Flush) 2.5 ml FLUSH ASDIRECTED PRN PRN Reason: Keep Vein Open Last Admin: 04/22/19 09:29 Dose: 2.5 ml Terazosin HCl (Hytrin) 5 mg PO BEDTIME [facility] Last Admin: 04/22/19 21:39 Dose: Not Given - Free Text/Narrative Note: I have evaluated the patient. I have discussed findings and treatment plan with resident. I agree with the assessment and plan outlined in the following note.
[2019-04-23] MEDS: Albuterol/Ipratropium 3.0-0.5 MG/3 ML Neb Soln NEB PRN (09:44)
[2019-04-23] MEDS ORDERED: Diltiazem 180 MG Cap.CD PO ONE (09:52)
== END 2019-04-23 11:30 | disposition home or self-care (01) ==
LOC: MW.ED 09:16 → MW.MS 12:40
PROVIDERS: ADMIT Internal Medicine; ATTEND Internal Medicine
DX: J44.1 Chronic obstructive pulmonary disease with (acute) exacerbation (principal); D72.829 Elevated white blood cell count, unspecified; R50.9 Fever, unspecified; E66.9 Obesity, unspecified; I10 Essential (primary) hypertension; E78.5 Hyperlipidemia, unspecified; Z85.038 Personal history of other malignant neoplasm of large intestine; Z90.49 Acquired absence of other specified parts of digestive tract; Z79.82 Long term (current) use of aspirin; Z79.51 Long term (current) use of inhaled steroids; Z79.899 Other long term (current) drug therapy; Z87.891 Personal history of nicotine dependence; Z68.33 Body mass index [BMI] 33.0-33.9, adult
CPT/HCPCS: 36415; 71045; 71275; 80048; 80053; 81001; 83605; 83735; 84439; 84443; 84445; 84481; 84484; 85025; 85027; 85379; 85610; 86376; 86800; 87040; 93005; 94640; 96361; 96365; 96366; 96372; 96375; 99285; A9270; G0378; J1650; J1956; J2930; J7040; Q9967; 96374; 99284; J7620-GY